=== PATIENT | male | born 1965 | race Caucasian/White ===

== ENCOUNTER 2022-01-01 19:00 | Emergency (ER) | payer OTHER ==
[~2022-01-01] VITALS: Ht 175.3 cm; Wt 79.4 kg
[2022-01-01 19:10] VITALS: BP 136/85
--- NOTE | 2022-01-01 19:10 | NUR ---
BIBS FOR R FIFTH FINGER LACERATION WITH KITCHEN KNIFE. TDAP NOT UPDATED. AMBULATORY, [id number], PLACED ON BED
--- NOTE | 2022-01-01 19:11 | NUR ---
AT BED SIDE
[2022-01-01] MEDS ORDERED: TDAP [DIPH/PERTUSSIS/TET] 0.5 ML VIAL IM ONE (19:30)
[2022-01-01] MEDS: TDAP [DIPH/PERTUSSIS/TET] 0.5 ML VIAL IM ONE (19:30)
--- NOTE | 2022-01-01 19:40 | NUR ---
Patient discharged to home in stable condition. Written and verbal after care instructions given. Patient verbalizes understanding of instruction.
== END 2022-01-01 19:40 | disposition home or self-care (01) ==
LOC: ER 19:02
DX: S61.216A Laceration without foreign body of right little finger without damage to nail, initial encounter (principal); J45.909 Unspecified asthma, uncomplicated; W26.0XXA Contact with knife, initial encounter; Y93.89 Activity, other specified; Y92.89 Other specified places as the place of occurrence of the external cause; Y99.8 Other external cause status
CPT/HCPCS: 90715